=== PATIENT | female | born 1955 | race Caucasian/White ===

== ENCOUNTER 2017-05-16 13:38 | Emergency (ER) | payer OTHER ==
[2017-05-16 14:29] VITALS: BP 165/57
--- NOTE | 2017-05-16 15:37 | UC ---
Respiratory Complaint HPI - HPI Summary HPI Summary: Pt presents with c/o of cough and wheezing X 1 week. - History of Current Complaint Chief Complaint: UCRespiratory Stated Complaint: COUGH,SORE THROAT Time Seen by Provider: 05/16/17 15:10 Hx Obtained From: Patient ?: No Onset/Duration: Gradual Onset, Lasting Weeks - 1 Timing: Constant Severity Initially: Mild Severity Currently: Mild Character: Cough: Productive, Sputum Description: - clear Aggravating Factors: Deep Breaths, Recumbent Position Alleviating Factors: Nothing Associated Signs And Symptoms: Positive: Wheezing, Nasal Congestion - Risk Factors Pulmonary Embolism Risk Factors: Smoking Cardiac Risk Factors: Smoking Pseudomonas Risk Factors: Chronic Lung Disease Tuberculosis Risk Factors: Smoking - Allergies/Home Medications Allergies/Adverse Reactions: Allergies Allergy/AdvReac Type Severity Reaction Status Date / Time No Known Allergies Allergy Verified 05/16/17 14:30 Home Medications: Home Medications Incuse Copd Inhaler 1 puff INH ONCE 05/16/17 [History] Lisinopril [Lisinopril 30 MG-] 30 mg PO DAILY 05/16/17 [History Confirmed ] PMH/Surg Hx/FS Hx/Imm Hx Previously Healthy: Yes - Surgical History Surgical History: Yes Surgery Procedure, Year, and Place: tubal. left ear surgery - Family History Known Family History: Positive: Cardiac Disease Family History: no known cardiovascular issues in family lineage - Social History Occupation: Works From/At Home Lives: With Family Alcohol Use: None Substance Use Type: None Smoking Status (MU): Heavy Every Day Tobacco Smoker Type: Cigarettes Amount Used/How Often: 2 packs day Length of Time of Smoking/Using Tobacco: AGE 16 Have You Smoked in the Last Year: Yes Household Exposure Type: Cigarettes Review of Systems Constitutional: Fatigue Skin: Negative Eyes: Negative ENT: Negative Respiratory: Shortness Of Breath, Cough, Other - wheezing Cardiovascular: Negative Gastrointestinal: Negative Genitourinary: Negative Motor: Negative Neurovascular: Negative Musculoskeletal: Negative Neurological: Negative Psychological: Negative Is Patient Immunocompromised?: No All Other Systems Reviewed And Are Negative: Yes Physical Exam Triage Information Reviewed: Yes Appearance: Ill-Appearing Vital Signs: Initial Vital Signs Temp 98.5 F 05/16/17 14:21 Pulse 77 05/16/17 14:21 Resp 28 05/16/17 14:21 BP 165/57 05/16/17 14:21 Pulse Ox 95 05/16/17 14:21 Vital Signs Reviewed: Yes Eye Exam: Normal ENT Exam: Other ENT: Positive: Nasal congestion Neck exam: Normal Respiratory Exam: Other Respiratory: Positive: Decreased breath sounds, Wheezing Cardiovascular Exam: Normal Musculoskeletal Exam: Normal Neurological Exam: Normal Psychological Exam: Normal Skin Exam: Normal UC Diagnostic Evaluation - Laboratory O2 Sat by Pulse Oximetry: 95 Respiratory Course/Dx - Differential Dx/Diagnosis Differential Diagnosis/HQI/PQRI: Bronchitis Provider Diagnoses: bronchitis. exacerbation of COPD Discharge - Discharge Plan Condition: Stable Disposition: HOME Prescriptions: Albuterol HFA INHALER* [Ventolin HFA Inhaler*] 2 puff INH Q4H PRN #1 mdi PRN Reason: Sob/Wheezing Azithromycin TAB* [Zithromax TAB (Z-DEYSI) 250 mg #6 tabs] 2 tab PO .TODAY, THEN 1 DAILY #1 deysi Benzonatate CAP* [Tessalon 100 MG CAP*] 100 mg PO Q8H PRN #30 cap PRN Reason: Cough Cetirizine* [ZyrTEC 10 MG TAB*] 10 mg PO DAILY #20 tab methylPREDNISolone TAB* [Medrol TAB*] 4 - 8 mg PO .SEE DEYSI #1 deysi Patient Education Materials: Acute Bronchitis (ED), Allergies (ED), Wheezing ( ED) Referrals: MARCELA Ibarra [Medical Doctor] - If Needed
== END 2017-05-16 16:03 | disposition home or self-care (01) ==
LOC: UCCORT 13:38
DX: J44.9 Chronic obstructive pulmonary disease, unspecified (principal); J45.901 Unspecified asthma with (acute) exacerbation; F17.210 Nicotine dependence, cigarettes, uncomplicated
CPT/HCPCS: 99212; G0463

== ENCOUNTER 2019-05-07 15:57 | Emergency (ER) | payer MEDICAID, OTHER ==
[2019-05-07 16:38] VITALS: BP 149/54
[2019-05-07] MEDS ORDERED: Albuterol 2.5 MG/3 ML NEB.SOL* (0.083%) INH ONE (16:42)
--- NOTE | 2019-05-07 16:42 | UC ---
Respiratory Complaint HPI - HPI Summary HPI Summary: Per aerospace technician: "Pt has been coughing since Saturday. Pt is not sleeping due to cough and becomes short of breath with exertion. " -sx started 05/05 AM. smokes 2 PPD. uses inctuise and alb prn. last alb was > 6 hrs ago. -denies fevers/chills. + COPD -she is deaf. is with her and he helps translate by lip reading him. -she has nebulizer at home but hasnt used it. O2 sat usually runs 94% - History of Current Complaint Chief Complaint: UCRespiratory Stated Complaint: COUGH,NO SLEEP,COUGH Time Seen by Provider: 05/07/19 16:35 Pain Intensity: 0 - Allergies/Home Medications Allergies/Adverse Reactions: Allergies Allergy/AdvReac Type Severity Reaction Status Date / Time No Known Allergies Allergy Verified 05/07/19 16:38 Home Medications: Home Medications Amlodipine Besylate [Norvasc] 10 mg PO DAILY 05/07/19 [History Confirmed ] Aspirin 81 mg CHEW TAB* 81 mg PO DAILY 05/07/19 [History Confirmed 05/07/19] Atorvastatin* [Lipitor 20 MG*] 20 mg PO 1700 05/07/19 [History Confirmed ] Lisinopril [Lisinopril 30 MG-] 30 mg PO DAILY 05/07/19 [History Confirmed ] Loratadine 10 mg PO DAILY 05/07/19 [History Confirmed 05/07/19] Nitroglycerin 0.4 mg SL SEE INSTRUCTIONS PRN 05/07/19 [History Confirmed ] Omeprazole 40 mg PO DAILY 05/07/19 [History Confirmed 05/07/19] Umeclidinium [place] [Incruse Ellipta] 62.5 mcg IN DAILY 05/07/19 [History Confirmed 05/07/19] hydroCHLOROthiazide [Hydrochlorothiazide] 12.5 mg PO DAILY 05/07/19 [History Confirmed 05/07/19] PMH/Surg Hx/FS Hx/Imm Hx Endocrine History: Dyslipidemia Cardiovascular History: Hypertension Respiratory History: COPD - Surgical History Surgical History: Yes Surgery Procedure, Year, and Place: tubal. left ear surgery - Family History Known Family History: Positive: Cardiac Disease Family History: no known cardiovascular issues in family lineage - Social History Alcohol Use: None Substance Use Type: None Smoking Status (MU): Heavy Every Day Tobacco Smoker Type: Cigarettes Amount Used/How Often: 2 packs day Length of Time of Smoking/Using Tobacco: AGE 16 Have You Smoked in the Last Year: Yes Household Exposure Type: Cigarettes Review of Systems All Other Systems Reviewed And Are Negative: Yes Constitutional: Positive: Negative Skin: Positive: Negative. Negative: Rash Eyes: Positive: Negative ENT: Positive: Negative Respiratory: Positive: Cough Cardiovascular: Positive: Negative. Negative: Palpitations, Chest Pain Gastrointestinal: Positive: Negative. Negative: Vomiting, Diarrhea, Nausea Genitourinary: Positive: Negative Motor: Positive: Negative Neurovascular: Positive: Negative Musculoskeletal: Positive: Negative Neurological: Positive: Negative Psychological: Positive: Negative Is Patient Immunocompromised?: No Physical Exam Triage Information Reviewed: Yes Appearance: Well-Nourished - appears mild-moderately ill Vital Signs: Initial Vital Signs Temp 97.8 F 05/07/19 16:31 Pulse 66 05/07/19 16:31 Resp 20 05/07/19 16:31 BP 149/54 05/07/19 16:31 Pulse Ox 90 05/07/19 16:31 Eye Exam: Normal ENT Exam: Normal ENT: Positive: Pharynx normal, TMs normal Neck exam: Normal Neck: Positive: Supple, Nontender, No Lymphadenopathy Respiratory: Positive: Chest non-tender, Rhonchi - loud b.l throughout w/ mod bretah sounds. appears comnfortable other than mild-mod cough. slightly decreased after alb neb. she feels more comfortable. )2 90-91% post-neb. Negative: No respiratory distress, No accessory muscle use, Crackles, Wheezing Cardiovascular Exam: Normal Cardiovascular: Positive: RRR Abdominal Exam: Normal Musculoskeletal Exam: Normal Neurological Exam: Normal Psychological Exam: Normal Skin Exam: Normal Respiratory Course/Dx - Course Course Of Treatment: CXR: "IMPRESSION: MINIMAL LINEAR ATELECTASIS VERSUS EARLY CONSOLIDATION OF THE LEFT LUNG BASE." -has some imporvement in sx after neb. she appears comfaortable. -they do not think she needs to go to the ER -she smokes 2 PPD. recommend dc smoking -agrees to go to ER if sx worsen prior to f/u with PCP or thereafter - Differential Dx/Diagnosis Differential Diagnosis/HQI/PQRI: Asthma, Bronchitis, Lower Resp Infection Provider Diagnosis: Pneumonia Discharge ED - Sign-Out/Discharge Documenting (check all that apply): Patient Departure All imaging exams completed and their final reports reviewed: Yes - Discharge Plan Condition: Stable Disposition: HOME Prescriptions: Amoxicillin/Clavulanate TAB* [Augmentin TAB 875*] 875 mg PO BID #20 tab predniSONE [Prednisone 20 MG TAB] 40 mg PO DAILY #10 tablet Patient Education Materials: Pneumonia (ED) Referrals: Lauren Cabrera MD [Primary Care Provider] - Additional Instructions: -It is recommended that you take a probiotic daily while you are on antibiotics. A few common brands that you can buy over the counter are colon health, align and florastor. These can help prevent a colon infection called c diff that can be associated with antibiotic use. --We talked about the potential side effects of prednisone including but not limited too increased energy/decreased sleep, stomach upset, irritability, hunger, elevated blood sugars and blood pressures, problems with your adrenal glands and cut off of the blood supply going to your hip. The latter symptoms are more typical of moth exterminator or frequent use of steroids. -Please follow up with your PCP tomorrow. I am concerned about your oxygen being 90%. If your symptoms worsen however, you should go directly to the ER. - Billing Disposition and Condition Condition: STABLE Disposition: Home
== END 2019-05-07 18:10 | disposition home or self-care (01) ==
LOC: UCCORT 15:57
DX: J18.9 Pneumonia, unspecified organism (principal); E78.5 Hyperlipidemia, unspecified; I10 Essential (primary) hypertension; J44.9 Chronic obstructive pulmonary disease, unspecified; F17.210 Nicotine dependence, cigarettes, uncomplicated
CPT/HCPCS: 71046; 99212; G0463